=== PATIENT | male | born 1960 | race Caucasian/White ===

== ENCOUNTER 2020-09-20 13:31 | Outpatient (CLI) | payer OTHER, SELFPAY ==
--- NOTE | ~2020-09-20 | MR_ITS ---
EXAMINATION: MR lumbar spine wo con DATE: 09/20/2020 14:46 INDICATION: Lumbar spinal stenosis. TECHNIQUE: Magnetic resonance imaging (MRI) of the lumbar spine was performed without intravenous con trast. Sequences included sagittal T2-weighted FSE, sagittal T2-weighted FS FSE, sagittal T1-weighted FSE, and axial T2-weighted FSE. COMPARISON: Lumbar spine MRI 07/28/2015 FINDINGS: There is 4 mm retrolisthesis of L3 on L4 and 3 mm retrolisthesis of L4 on L5 and L5 on S1. Vertebral body heights are normal. There is mildly decreased disc height at L2-L3 and L3-L4. There is moderately decreased disc height at L4-L5 and L5-S1 with endplate remodeling. The distal spinal cord signal intensity is normal. The conus medullaris is at L1-L2. 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 The following disc levels are specifically discussed: L1-L2: The disc does not extend beyond the endplate margin. There is moderate bilateral facet joint o steoarthritis. There is no neural foraminal stenosis. There is no central canal stenosis. L2-L3: The disc is bulging. There is severe right and moderate left facet joint osteoarthritis. There is mild left neural foraminal stenosis. There is mild central canal stenosis. L3-L4: The disc is bulging and has an annular fissure. There is mild bilateral facet joint osteoarthr itis. There is mild right and moderate left neural foraminal stenosis. There is mild central canal st enosis. L4-L5: The disc is bulging and has an annular fissure. There is severe right and mild left facet join t osteoarthritis. There is moderate bilateral neural foraminal stenosis. There is mild central canal stenosis. L5-S1: The disc is bulging and has an annular fissure. There is mild bilateral facet joint osteoarthr itis. There is mild bilateral neural foraminal stenosis. There is mild central canal stenosis. IMPRESSION: 1. Moderate lumbar spondylosis, worsened from 07/28/2015. Reviewed, dictated and finalized at location A. SH OFF OPERATOR
== END 2020-09-20 13:32 | disposition home or self-care (01) ==
PROVIDERS: Visit Provider Nurse Practitioner Adult Health
DX: M48.062 Spinal stenosis, lumbar region with neurogenic claudication (principal); M47.816 Spondylosis without myelopathy or radiculopathy, lumbar region
CPT/HCPCS: 72148

== ENCOUNTER 2021-06-20 08:02 | Outpatient (CLI) | payer OTHER, SELFPAY | END 2021-06-20 08:03 | disposition home or self-care (01) | LOC: ANHAUDIO 08:04 | PROVIDERS: PCP Internal Medicine Gastroenterology; Visit Provider Otolaryngology | DX: H81.11 Benign paroxysmal vertigo, right ear (principal) | CPT/HCPCS: 92540; 92546; 92557; 92567 ==

== ENCOUNTER 2023-02-26 08:36 | Outpatient (CLI) | payer OTHER, SELFPAY ==
--- NOTE | 2023-02-28 16:01 | WPDSLEEPSTUD ---
Sleep Study Date of Study: 02/26/23 Ordering Provider: Mason Babcock Jr., MD Interpreting Physician: Samara Gray MD Sleep Study Type: CPAP Titration Height: 1.75 m Weight: 113.398 kg Body Mass Index: 36.9 Neck Circumference (inches): 16 Bohannon: 9 Reason for Sleep Study Daytime hypersomnia Sleep History Jeison Jane is a 62-year-old male with history of aortic stenosis and coronary artery disease who presented to the sleep lab for CPAP titration study. He has a history of obstructive sleep apnea. It is not known when he stopped using PAP therapy. He also has emphysema. He occasionally awakens from sleep short of breath.? He rarely awakens at night with heartburn, belching or cough.? He frequently snores. He frequently has trouble sleeping when he has a cold. He rarely wakes up gasping for breath during the night. He occasionally has breathing problems at night. He occasionally sweats excessively at night. He rarely falls asleep during the day. He rarely falls asleep involuntarily and never falls asleep while driving.? He occasionally notices his heart pounding or beating irregularly during the night.? He never feels paralyzed on waking or falling asleep. He rarely experiences vivid dreams upon waking or falling asleep. He rarely feels afraid of going to sleep. He rarely has nightmares. He never recalls his dreams. He constantly has thoughts racing through his mind. He occasionally feels sad or depressed. He occasionally feels anxiety or worry about things. He occasionally notices parts of his body jerk. He occasionally feels crawling or aching feelings in his legs. He occasionally feels leg pain at night. He frequently feels bothered by pain during the day and is frequently awakened by pain during the night. He frequently wakes up feeling stiff, sore and achy in the morning with pain in his neck, spine, or joints. He reports a 50 lb weight gain in the last year. Normal bedtime is around 11:30pm on the weekdays and same on the weekends. The time it takes him to fall asleep each night varies. His wake-up time each day varies. He typically wakes up around 2 to 3 times per night. He occasionally watches television before falling asleep. He takes naps in the afternoon or evening. Habits:? Former tobacco smoker, quit 7 years ago. . Drinks about 1 caffeinated beverage per day. No alcohol or recreational substances. Patient stated to the durability technician on the night of his study that he usually sleeps in a recliner chair at home. Patient stated he slept all day long and took a nap the day of this study. [facility]LY [facility] Past Medical History Medical History (Updated 02/28/23 @ 16:15 by Samara Gray MD) Aortic stenosis Emphysema of lung Hypertension Obstructive sleep apnea Surgical History Surgical History (Updated 02/28/23 @ 16:13 by Samara Gray MD) Status post hernia repair Status post rhinoplasty Social History Social History (Updated 02/28/23 @ 16:14 by Samara Gray MD) Smoking status: Former smoker Medications Medications: Printed list from cardiology visit on February 12, 2023 atorvastatin 20 mg a day aspirin 81 mg a day losartan 25 mg a day diltiazem HCl 240 mg extended release daily carvedilol 12.5 mg probably twice a day Sleep Procedure This test was performed using the [employer] multiple channel system including EOG, EEG, submental EMG, EKG, nasal and oral airflow using thermistors and nasal pressure sensors, chest and abdominal belts for body position data, and pulse oximetry.? Video monitoring was also performed. The study was scored using CMS guidelines.? The patient was started on CPAP using?a medium [employer] Airfit F30 mask and heated humidifier.? CPAP pressures attempted included CPAP 7cm EPR 3, 8cm EPR 1, 8cm EPR 1 with 1L/min O2, 8cm EPR 1 with 2L/min O2, CPAP 9cm EPR 1 with 2L/min O2, 9cm EPR 3, 10cm EPR 1 with 2L/min O2, 10cm EPR 3. He was transitioned to BiPAP 06/13, then transitioned back
[2023-02-28 16:43] VITALS: BMI 36.9
== END 2023-02-27 07:29 | disposition home or self-care (01) ==
LOC: ANHCSM 08:36
PROVIDERS: PCP Internal Medicine Gastroenterology; Visit Provider Internal Medicine Cardiovascular Disease
DX: G47.33 Obstructive sleep apnea (adult) (pediatric) (principal); I10 Essential (primary) hypertension; Z87.891 Personal history of nicotine dependence
CPT/HCPCS: 95811